=== PATIENT | female | born 1945 | race African-American/Black ===

== ENCOUNTER 2020-09-09 09:20 | Inpatient (IN) ==
[2020-09-09] MEDS ORDERED: ONDANSETRON 4 MG/2 ML VIAL IV STA (11:52)
[2020-09-09] MEDS ORDERED: SODIUM CHLORIDE 0.9% 1,000 ML IV STA (11:52)
[2020-09-09 12:16] LABS: Basophils % 0.1 % (0.0-0.8); Hematocrit 41.1 VOL% (35.7-47.0); Hemoglobin 13.3 GM/DL (12.0-16.0); Immature Granulocytes % 0.7 %; Immature Granulocytes Absolute 0.05 #; Lymphocytes # 0.4 10*3/uL (1.4-4.0); Lymphocytes % 5.1 % (21.3-54.2); Mean Corpuscular HGB Conc 32.4 GM/DL (32-36); Mean Corpuscular Volume 80.4 FL (87-102); Mean Platelet Volume 12.1 FL (9.6-12.0); Monocytes % 3.6 % (1.7-12.7); Neutrophils % 90.5 % (38.7-73.9); Platelet Count 157 T/CUMM (130-400); Red Blood Count 5.11 MC/CUMM (3.8-5.5); Red Cell Distribution Width 13.7 % (9.3-17.3); White Blood Count 6.9 T/CUMM (4-12)
[2020-09-09 12:24] LABS: Amorphous Crystals,Urine Moderate /HPF (Few); Bilirubin,Urine Negative (Negative); Blood, Urine Moderate mg/dL (Negative); Glucose,Urine (UA) 150 mg/dL (Negative); Ketones,Urine 5 mg/dL (Negative); Nitrite,Urine Negative (Negative); Protein,Urine >=500 MG/DL; Urine Appearance Slightly Hazy (Clear); Urine Color Yellow (Yellow); Urine Specific Gravity 1.019 (1.001-1.035); Urine Urobilinogen < 2.0 EU/DL (0.2-1.0)
[2020-09-09 12:38] LABS: Alanine Aminotransferase 29 U/L (13-56); Albumin 3.3 G/DL (3.4-5.0); Alkaline Phosphatase 80 U/L (45-117); Aspartate Amino Transferase 67 U/L (0-37); Bilirubin,Total < 0.39 MG/DL (0.20-1.00); Blood Urea Nitrogen 31 MG/DL (7-18); Carbon Dioxide 16 MMOL/L (21-32); Estimated Glom Filtration Rate 22 ML/MIN; Glucose 294 MG/DL (74-106); Osmolality,Calculated 287.1 MOS/KG (273-304); Potassium 3.7 MMOL/L (3.5-5.1); Sodium 135 MMOL/L (136-145); Total Protein 7.9 G/DL (6.4-8.2)
[2020-09-09 13:46] LABS: HIV Antigen/Antibody Result Nonreactive (Nonreactive); Hepatitis B Surface Ag Quant 0.43 Index; Hepatitis B Surface Ag Result Non-Reactive (NonReactive); Hepatitis C Virus Ab Quant > 11.00 Index; Hepatitis C Virus Ab Result Reactive (NonReactive)
[2020-09-09] MEDS ORDERED: ONDANSETRON 4 MG/2 ML VIAL IV PRN (13:54)
[2020-09-09] MEDS ORDERED: ACETAMINOPHEN 325 MG TABLET PO PRN (13:54)
[2020-09-09] MEDS ORDERED: GLUCAGON 1 MG VIAL IM PRN (13:54)
[2020-09-09] MEDS ORDERED: DEXTROSE 50% 25 GM/50 ML VIAL IV PRN (13:54)
[2020-09-09] MEDS ORDERED: hydrALAZINE 20 MG/1 ML VIAL ONE (14:00)
[2020-09-09] MEDS: PANTOPRAZOLE 40 MG VIAL IV SCH ×2 (14:20→20:40)
[2020-09-09] MEDS ORDERED: hydrALAZINE 20 MG/1 ML VIAL IV STA (14:49)
[2020-09-09] MEDS: SODIUM CHLORIDE 0.9% 1,000 ML IV SCH ×2 (15:04→23:47)
[2020-09-09] MEDS ORDERED: MELATONIN 3 MG TABLET PO PRN (15:28)
[2020-09-09] MEDS ORDERED: AZITHROMYCIN INJ 500 MG in SODIUM CHLORIDE 0.9% 250 ML IV ONE (15:28)
[2020-09-09] MEDS ORDERED: ENOXAPARIN 30 MG/0.3 ML SYRINGE SUBCUT SCH (15:30)
[2020-09-09] MEDS ORDERED: SODIUM CHLORIDE 0.9% 1,000 ML IV ONE (15:38)
[2020-09-09 16:02] LABS: Ferritin 367.9 ng/ml (8-252)
[2020-09-09] MEDS: DEXAMETHASONE 4 MG/1 ML VIAL IV SCH (16:14)
[2020-09-09] MEDS: ZINC GLUCONATE 50 MG TABLET PO SCH (16:18)
[2020-09-09] MEDS: CHOLECALCIFEROL 1,000 UNIT TABLET PO SCH (16:18)
[2020-09-09] MEDS: CETIRIZINE 10 MG TABLET PO SCH (16:19)
[2020-09-09] MEDS: cefTRIAXone 1,000 MG in SODIUM CHLORIDE 0.9% 100 ML IV SCH (16:19)
[2020-09-09 16:37] LABS: Calcium 7.8 MG/DL (8.5-10.1); Potassium 3.5 MMOL/L (3.5-5.1)
[2020-09-09] MEDS: METOPROLOL SUCCINATE XL 50 MG TABLET PO SCH (17:20)
[2020-09-09] MEDS: INSULIN LISPRO 100 UNIT/ML SUBCUT SCH ×2 (17:20→21:03)
[2020-09-09] MEDS ORDERED: PROMETHAZINE INJ 25 MG in SODIUM CHLORIDE 0.9% 50 ML IV PRN (17:42)
[2020-09-09] MEDS ORDERED: REMDESIVIR 200 MG in SODIUM CHLORIDE 0.9% 210 ML IV ONE (18:00)
[2020-09-09] MEDS: hydrALAZINE 20 MG/1 ML VIAL IV PRN (18:08)
[2020-09-09] MEDS: ATORVASTATIN 40 MG TABLET PO SCH (20:39)
[2020-09-09] MEDS: SERTRALINE 50 MG TABLET PO SCH (20:39)
[2020-09-09] MEDS: ASCORBIC ACID 500 MG TABLET PO SCH (20:39)
[2020-09-09] MEDS: FAMOTIDINE 20 MG TABLET PO SCH (20:39)
[2020-09-10] MEDS: hydrALAZINE 20 MG/1 ML VIAL IV PRN (00:44)
[2020-09-10] MEDS: INSULIN LISPRO 100 UNIT/ML SUBCUT SCH ×5 (03:10→21:41)
[2020-09-10 05:46] LABS: Hemoglobin 11.8 GM/DL (12.0-16.0); Immature Granulocytes % 0.6 %; Immature Granulocytes Absolute 0.05 #; Lymphocytes # 0.6 10*3/uL (1.4-4.0); Lymphocytes % 7.2 % (21.3-54.2); Mean Corpuscular HGB Conc 31.1 GM/DL (32-36); Mean Corpuscular Volume 82.4 FL (87-102); Mean Platelet Volume 11.7 FL (9.6-12.0); Monocytes % 4.9 % (1.7-12.7); Neutrophils % 87.3 % (38.7-73.9); Platelet Count 164 T/CUMM (130-400); Red Blood Count 4.61 MC/CUMM (3.8-5.5); Red Cell Distribution Width 14.1 % (9.3-17.3); White Blood Count 7.9 T/CUMM (4-12)
[2020-09-10 05:59] LABS: Alanine Aminotransferase 21 U/L (13-56); Albumin 2.5 G/DL (3.4-5.0); Alkaline Phosphatase 61 U/L (45-117); Aspartate Amino Transferase 52 U/L (0-37); Bilirubin,Total < 0.39 MG/DL (0.20-1.00); Blood Urea Nitrogen 32 MG/DL (7-18); Calcium 7.5 MG/DL (8.5-10.1); Carbon Dioxide 15 MMOL/L (21-32); Estimated Glom Filtration Rate 24 ML/MIN; Glucose 216 MG/DL (74-106); HDL Cholesterol 37 MG/DL (40-60); Osmolality,Calculated 292.4 MOS/KG (273-304); Potassium 3.9 MMOL/L (3.5-5.1); Risk Ratio 3.51; Sodium 140 MMOL/L (136-145); Total Protein 6.4 G/DL (6.4-8.2); Triglycerides 118 MG/DL (2-150); VLDL Cholesterol 23.6 MG/DL
[2020-09-10] MEDS: LEVOTHYROXINE 150 MCG TABLET PO SCH (06:05)
[2020-09-10] MEDS ORDERED: LACTATED RINGERS 1,000 ML IV SCH (08:00)
[2020-09-10] MEDS: PANTOPRAZOLE 40 MG VIAL IV SCH (08:47)
[2020-09-10] MEDS: DEXAMETHASONE 4 MG/1 ML VIAL IV SCH (08:47)
[2020-09-10] MEDS: CHOLECALCIFEROL 1,000 UNIT TABLET PO SCH (08:48)
[2020-09-10] MEDS: amLODIPine 10 MG TABLET PO SCH (08:49)
[2020-09-10] MEDS: ZINC GLUCONATE 50 MG TABLET PO SCH (08:49)
[2020-09-10] MEDS: ASCORBIC ACID 500 MG TABLET PO SCH ×2 (08:50→20:51)
[2020-09-10] MEDS: METOPROLOL SUCCINATE XL 50 MG TABLET PO SCH (08:50)
[2020-09-10] MEDS: AZITHROMYCIN 250 MG TABLET PO SCH (08:50)
[2020-09-10] MEDS: FAMOTIDINE 20 MG TABLET PO SCH (08:50)
[2020-09-10] MEDS: CETIRIZINE 10 MG TABLET PO SCH (08:50)
[2020-09-10] MEDS: BISACODYL 5 MG TABLET PO SCH (08:52)
[2020-09-10] MEDS: SODIUM BICARBONATE 650 MG TABLET PO SCH ×2 (08:53→20:51)
[2020-09-10] MEDS: REMDESIVIR 100 MG in SODIUM CHLORIDE 0.9% 100 ML IV SCH (10:41)
[2020-09-10] MEDS: SODIUM CHLORIDE 0.9% 1,000 ML IV SCH (15:04)
[2020-09-10] MEDS: cefTRIAXone 1,000 MG in SODIUM CHLORIDE 0.9% 100 ML IV SCH (15:50)
[2020-09-10] MEDS: ENOXAPARIN 60 MG/0.6 ML SYRINGE SUBCUT SCH (15:50)
[2020-09-10] MEDS: oxyCODONE/ACETAMINOPHEN 5-325 MG TABLET PO PRN (15:51)
[2020-09-10] MEDS: SUCRALFATE 1 GM TABLET PO SCH ×2 (17:47→23:59)
[2020-09-10] MEDS: SERTRALINE 50 MG TABLET PO SCH (20:51)
[2020-09-10] MEDS: ATORVASTATIN 40 MG TABLET PO SCH (20:51)
[2020-09-10] MEDS: LORazepam 2 MG/1 ML VIAL IV PRN (23:10)
[2020-09-11] MEDS: LORazepam 2 MG/1 ML VIAL IV PRN (03:15)
[2020-09-11 05:54] LABS: Hematocrit 37.4 VOL% (35.7-47.0); Hemoglobin 11.4 GM/DL (12.0-16.0); Lymphocytes # 0.8 10*3/uL (1.4-4.0); Lymphocytes % 7.8 % (21.3-54.2); Mean Corpuscular HGB Conc 30.5 GM/DL (32-36); Mean Corpuscular Volume 82.6 FL (87-102); Mean Platelet Volume 10.8 FL (9.6-12.0); Monocytes % 5.5 % (1.7-12.7); Neutrophils % 85.7 % (38.7-73.9); Platelet Count 206 T/CUMM (130-400); Red Blood Count 4.53 MC/CUMM (3.8-5.5); Red Cell Distribution Width 14.6 % (9.3-17.3); White Blood Count 9.7 T/CUMM (4-12)
[2020-09-11] MEDS: SUCRALFATE 1 GM TABLET PO SCH ×3 (06:00→17:50)
[2020-09-11 06:16] LABS: Albumin 2.6 G/DL (3.4-5.0); Bilirubin,Total 0.5 MG/DL (0.20-1.00); Calcium 7.7 MG/DL (8.5-10.1); Ferritin 518.1 ng/ml (8-252); Osmolality,Calculated 288.5 MOS/KG (273-304); Total Protein 6.5 G/DL (6.4-8.2)
[2020-09-11] MEDS: LEVOTHYROXINE 150 MCG TABLET PO SCH (06:29)
[2020-09-11] MEDS: INSULIN LISPRO 100 UNIT/ML SUBCUT SCH ×4 (07:00→20:28)
[2020-09-11] MEDS: CHOLECALCIFEROL 1,000 UNIT TABLET PO SCH (09:40)
[2020-09-11] MEDS: ZINC GLUCONATE 50 MG TABLET PO SCH (09:40)
[2020-09-11] MEDS: AZITHROMYCIN 250 MG TABLET PO SCH (09:40)
[2020-09-11] MEDS: REMDESIVIR 100 MG in SODIUM CHLORIDE 0.9% 100 ML IV SCH (09:40)
[2020-09-11] MEDS: CETIRIZINE 10 MG TABLET PO SCH (09:40)
[2020-09-11] MEDS: DEXAMETHASONE 4 MG/1 ML VIAL IV SCH (09:40)
[2020-09-11] MEDS: FAMOTIDINE 20 MG TABLET PO SCH (09:40)
[2020-09-11] MEDS: METOPROLOL SUCCINATE XL 50 MG TABLET PO SCH (09:40)
[2020-09-11] MEDS: amLODIPine 10 MG TABLET PO SCH (09:40)
[2020-09-11] MEDS: ASCORBIC ACID 500 MG TABLET PO SCH ×2 (09:40→20:26)
[2020-09-11] MEDS: BISACODYL 5 MG TABLET PO SCH (09:40)
[2020-09-11] MEDS: SODIUM BICARBONATE 650 MG TABLET PO SCH ×2 (09:40→20:26)
[2020-09-11 14:30] LABS: ABG HCO3 17.8 MMOL/L (20-26); ABG Oxygen Saturation 90.6 % (95-100); ABG PCO2 32.2 MM HG (35-48); ABG PO2 65.3 MM HG (80-95); ABG TCO2 15.3 MMOL/L (23-27)
[2020-09-11] MEDS: ENOXAPARIN 60 MG/0.6 ML SYRINGE SUBCUT SCH (17:44)
[2020-09-11] MEDS: cefTRIAXone 1,000 MG in SODIUM CHLORIDE 0.9% 100 ML IV SCH (17:44)
[2020-09-11] MEDS: SERTRALINE 50 MG TABLET PO SCH (20:26)
[2020-09-11] MEDS: oxyCODONE/ACETAMINOPHEN 5-325 MG TABLET PO PRN (20:26)
[2020-09-11] MEDS: ATORVASTATIN 40 MG TABLET PO SCH (20:26)
[2020-09-12] MEDS: SUCRALFATE 1 GM TABLET PO SCH ×4 (00:26→17:04)
[2020-09-12 04:32] LABS: ABG Base Excess -6.7 MMOL/L (-2.5-2.5); ABG HCO3 18.8 MMOL/L (20-26); ABG Oxygen Saturation 87.3 % (95-100); ABG PH 7.309 (7.35-7.45); ABG PO2 60.4 MM HG (80-95); ABG TCO2 17.2 MMOL/L (23-27); Allen Test Positive; Pt O2 Delivery Device Other
[2020-09-12] MEDS: LEVOTHYROXINE 150 MCG TABLET PO SCH (06:11)
[2020-09-12 06:28] LABS: Basophils % 0.1 % (0.0-0.8); Hematocrit 35.5 VOL% (35.7-47.0); Hemoglobin 11.2 GM/DL (12.0-16.0); Immature Granulocytes Absolute 0.07 #; Lymphocytes # 1.1 10*3/uL (1.4-4.0); Lymphocytes % 15.3 % (21.3-54.2); Mean Corpuscular HGB Conc 31.5 GM/DL (32-36); Mean Corpuscular Volume 82.8 FL (87-102); Mean Platelet Volume 11.3 FL (9.6-12.0); Monocytes % 7.6 % (1.7-12.7); Platelet Count 225 T/CUMM (130-400); Red Blood Count 4.29 MC/CUMM (3.8-5.5); Red Cell Distribution Width 14.8 % (9.3-17.3); White Blood Count 7.2 T/CUMM (4-12)
[2020-09-12 06:57] LABS: Calcium 7.3 MG/DL (8.5-10.1); Osmolality,Calculated 298.8 MOS/KG (273-304); Potassium 3.7 MMOL/L (3.5-5.1)
[2020-09-12 07:50] LABS: Hypochromasia 1+; Microcytosis 1+; Ovalocytes Slight
[2020-09-12 07:51] LABS: Platelet Estimate Normal
[2020-09-12] MEDS: INSULIN LISPRO 100 UNIT/ML SUBCUT SCH ×4 (08:17→21:22)
[2020-09-12] MEDS: CETIRIZINE 10 MG TABLET PO SCH (08:19)
[2020-09-12] MEDS: CHOLECALCIFEROL 1,000 UNIT TABLET PO SCH (08:19)
[2020-09-12] MEDS: METOPROLOL SUCCINATE XL 50 MG TABLET PO SCH (08:19)
[2020-09-12] MEDS: SODIUM BICARBONATE 650 MG TABLET PO SCH ×2 (08:19→21:23)
[2020-09-12] MEDS: ASCORBIC ACID 500 MG TABLET PO SCH ×2 (08:19→21:23)
[2020-09-12] MEDS: amLODIPine 10 MG TABLET PO SCH (08:19)
[2020-09-12] MEDS: ZINC GLUCONATE 50 MG TABLET PO SCH (08:19)
[2020-09-12] MEDS: AZITHROMYCIN 250 MG TABLET PO SCH (08:20)
[2020-09-12] MEDS: FAMOTIDINE 20 MG TABLET PO SCH ×2 (08:20→21:25)
[2020-09-12] MEDS: BISACODYL 5 MG TABLET PO SCH (08:20)
[2020-09-12] MEDS: DEXAMETHASONE 4 MG/1 ML VIAL IV SCH (08:21)
[2020-09-12] MEDS: ENOXAPARIN 60 MG/0.6 ML SYRINGE SUBCUT SCH ×2 (08:23→21:22)
[2020-09-12] MEDS: REMDESIVIR 100 MG in SODIUM CHLORIDE 0.9% 100 ML IV SCH (09:26)
[2020-09-12] MEDS ORDERED: LOPERAMIDE 2 MG CAPSULE PO PRN (11:31)
[2020-09-12] MEDS: cefTRIAXone 1,000 MG in SODIUM CHLORIDE 0.9% 100 ML IV SCH (15:55)
[2020-09-12] MEDS: SERTRALINE 50 MG TABLET PO SCH (21:23)
[2020-09-12] MEDS: ATORVASTATIN 40 MG TABLET PO SCH (21:23)
[2020-09-12] MEDS: oxyCODONE/ACETAMINOPHEN 5-325 MG TABLET PO PRN (21:34)
[2020-09-13] MEDS: SUCRALFATE 1 GM TABLET PO SCH ×4 (01:00→17:07)
[2020-09-13 05:24] LABS: ABG Base Excess -7.6 MMOL/L (-2.5-2.5); ABG HCO3 18.2 MMOL/L (20-26); ABG Oxygen Saturation 88.1 % (95-100); ABG PCO2 38.3 MM HG (35-48); ABG PH 7.292 (7.35-7.45); ABG PO2 62.3 MM HG (80-95); ABG TCO2 16.6 MMOL/L (23-27); Allen Test Positive; Pt O2 Delivery Device Other
[2020-09-13] MEDS: LEVOTHYROXINE 150 MCG TABLET PO SCH (06:08)
[2020-09-13 06:22] LABS: Calcium 7.9 MG/DL (8.5-10.1); Osmolality,Calculated 295.5 MOS/KG (273-304); Potassium 4.1 MMOL/L (3.5-5.1)
[2020-09-13] MEDS: DEXAMETHASONE 4 MG/1 ML VIAL IV SCH (08:23)
[2020-09-13] MEDS: ENOXAPARIN 60 MG/0.6 ML SYRINGE SUBCUT SCH ×2 (08:30→21:26)
[2020-09-13] MEDS: INSULIN LISPRO 100 UNIT/ML SUBCUT SCH ×4 (08:30→21:28)
[2020-09-13] MEDS: ASCORBIC ACID 500 MG TABLET PO SCH ×2 (08:32→21:29)
[2020-09-13] MEDS: SODIUM BICARBONATE 650 MG TABLET PO SCH ×2 (08:32→21:29)
[2020-09-13] MEDS: BISACODYL 5 MG TABLET PO SCH (08:32)
[2020-09-13] MEDS: ZINC GLUCONATE 50 MG TABLET PO SCH (08:32)
[2020-09-13] MEDS: METOPROLOL SUCCINATE XL 50 MG TABLET PO SCH (08:32)
[2020-09-13] MEDS: AZITHROMYCIN 250 MG TABLET PO SCH (08:32)
[2020-09-13] MEDS: CETIRIZINE 10 MG TABLET PO SCH (08:32)
[2020-09-13] MEDS: amLODIPine 10 MG TABLET PO SCH (08:33)
[2020-09-13] MEDS: CHOLECALCIFEROL 1,000 UNIT TABLET PO SCH (08:33)
[2020-09-13] MEDS: FAMOTIDINE 20 MG TABLET PO SCH ×2 (08:33→21:29)
[2020-09-13] MEDS: REMDESIVIR 100 MG in SODIUM CHLORIDE 0.9% 100 ML IV SCH (08:48)
[2020-09-13] MEDS: cefTRIAXone 1,000 MG in SODIUM CHLORIDE 0.9% 100 ML IV SCH (15:24)
[2020-09-13] MEDS ORDERED: INSULIN GLARGINE 100 UNIT/ML SUBCUT SCH (21:00)
[2020-09-13] MEDS: ATORVASTATIN 40 MG TABLET PO SCH (21:29)
[2020-09-13] MEDS: SERTRALINE 50 MG TABLET PO SCH (21:30)
[2020-09-14] MEDS: SUCRALFATE 1 GM TABLET PO SCH ×4 (00:24→17:47)
[2020-09-14] MEDS: oxyCODONE/ACETAMINOPHEN 5-325 MG TABLET PO PRN ×2 (00:25→15:53)
[2020-09-14 04:42] LABS: ABG Base Excess -7.7 MMOL/L (-2.5-2.5); ABG HCO3 17.5 MMOL/L (20-26); ABG Oxygen Saturation 88.8 % (95-100); ABG PCO2 34.9 MM HG (35-48); ABG PH 7.319 (7.35-7.45); ABG PO2 60.7 MM HG (80-95); ABG TCO2 18.6 MMOL/L (23-27); Allen Test Positive
[2020-09-14 06:14] LABS: Basophils % 0.1 % (0.0-0.8); Hematocrit 34.1 VOL% (35.7-47.0); Hemoglobin 10.6 GM/DL (12.0-16.0); Immature Granulocytes % 1.7 %; Immature Granulocytes Absolute 0.23 #; Lymphocytes # 0.8 10*3/uL (1.4-4.0); Lymphocytes % 5.8 % (21.3-54.2); Mean Corpuscular HGB Conc 31.1 GM/DL (32-36); Mean Corpuscular Volume 81.6 FL (87-102); Mean Platelet Volume 10.7 FL (9.6-12.0); Monocytes % 5.9 % (1.7-12.7); Neutrophils % 86.5 % (38.7-73.9); Platelet Count 302 T/CUMM (130-400); Red Blood Count 4.18 MC/CUMM (3.8-5.5); Red Cell Distribution Width 14.4 % (9.3-17.3); White Blood Count 13.4 T/CUMM (4-12)
[2020-09-14] MEDS: LEVOTHYROXINE 150 MCG TABLET PO SCH (06:16)
[2020-09-14 06:59] LABS: Alanine Aminotransferase 16 U/L (13-56); Albumin 2.2 G/DL (3.4-5.0); Alkaline Phosphatase 53 U/L (45-117); Aspartate Amino Transferase 16 U/L (0-37); Bilirubin,Total < 0.39 MG/DL (0.20-1.00); Blood Urea Nitrogen 55 MG/DL (7-18); Carbon Dioxide 18 MMOL/L (21-32); Estimated Glom Filtration Rate 22 ML/MIN; Ferritin 303.7 ng/ml (8-252); Glucose 161 MG/DL (74-106); Osmolality,Calculated 296.4 MOS/KG (273-304); Potassium 3.7 MMOL/L (3.5-5.1); Sodium 140 MMOL/L (136-145); Total Protein 5.9 G/DL (6.4-8.2)
[2020-09-14 07:19] LABS: Anisocytosis 1+; Platelet Estimate Normal
[2020-09-14 07:20] LABS: Burr Cells 1+
[2020-09-14] MEDS: DEXAMETHASONE 4 MG/1 ML VIAL IV SCH (08:27)
[2020-09-14] MEDS: amLODIPine 10 MG TABLET PO SCH (08:29)
[2020-09-14] MEDS: ZINC GLUCONATE 50 MG TABLET PO SCH (08:29)
[2020-09-14] MEDS: METOPROLOL SUCCINATE XL 50 MG TABLET PO SCH (08:29)
[2020-09-14] MEDS: CHOLECALCIFEROL 1,000 UNIT TABLET PO SCH (08:29)
[2020-09-14] MEDS: SODIUM BICARBONATE 650 MG TABLET PO SCH ×2 (08:30→20:21)
[2020-09-14] MEDS: FAMOTIDINE 20 MG TABLET PO SCH ×2 (08:30→20:21)
[2020-09-14] MEDS: CETIRIZINE 10 MG TABLET PO SCH (08:30)
[2020-09-14] MEDS: BISACODYL 5 MG TABLET PO SCH (08:30)
[2020-09-14] MEDS: ENOXAPARIN 60 MG/0.6 ML SYRINGE SUBCUT SCH ×2 (08:30→20:20)
[2020-09-14] MEDS: ASCORBIC ACID 500 MG TABLET PO SCH ×2 (08:30→20:21)
[2020-09-14] MEDS: INSULIN LISPRO 100 UNIT/ML SUBCUT SCH ×4 (08:54→20:21)
[2020-09-14] MEDS: LACTATED RINGERS 1,000 ML IV SCH (09:43)
[2020-09-14] MEDS: MAGNESIUM SULF RIDER 2 GM/50 ML PREMIX IV PRN (12:01)
[2020-09-14] MEDS ORDERED: SODIUM POLYSTYRENE SULFATE 15 GM/60 ML BOTTLE ONE (14:25)
[2020-09-14] MEDS: cefTRIAXone 1,000 MG in SODIUM CHLORIDE 0.9% 100 ML IV SCH (15:22)
[2020-09-14] MEDS: SERTRALINE 50 MG TABLET PO SCH (20:20)
[2020-09-14] MEDS: INSULIN GLARGINE 100 UNIT/ML SUBCUT SCH (20:21)
[2020-09-14] MEDS: ATORVASTATIN 40 MG TABLET PO SCH (20:21)
[2020-09-15] MEDS: LACTATED RINGERS 1,000 ML IV SCH ×4 (00:02→19:00)
[2020-09-15] MEDS: SUCRALFATE 1 GM TABLET PO SCH ×5 (00:02→17:03)
[2020-09-15 05:06] LABS: Allen Test Positive; Pt O2 Delivery Device Other
[2020-09-15 05:07] LABS: ABG Base Excess -6.1 MMOL/L (-2.5-2.5); ABG HCO3 19.2 MMOL/L (20-26); ABG Oxygen Saturation 88.4 % (95-100); ABG PH 7.332 (7.35-7.45); ABG PO2 59.4 MM HG (80-95); ABG TCO2 20.3 MMOL/L (23-27)
[2020-09-15 06:01] LABS: Basophils # 0.1 10*3/uL (0.0-0.2); Basophils % 0.3 % (0.0-0.8); Hematocrit 35.4 VOL% (35.7-47.0); Hemoglobin 11.1 GM/DL (12.0-16.0); Immature Granulocytes % 3.4 %; Immature Granulocytes Absolute 0.51 #; Lymphocytes # 0.8 10*3/uL (1.4-4.0); Lymphocytes % 4.9 % (21.3-54.2); Mean Corpuscular HGB Conc 31.4 GM/DL (32-36); Mean Corpuscular Volume 82.3 FL (87-102); Mean Platelet Volume 10.7 FL (9.6-12.0); Monocytes % 6.7 % (1.7-12.7); Neutrophils % 84.7 % (38.7-73.9); Platelet Count 333 T/CUMM (130-400); Red Cell Distribution Width 14.6 % (9.3-17.3); White Blood Count 15.2 T/CUMM (4-12)
[2020-09-15 06:20] LABS: Alanine Aminotransferase 15 U/L (13-56); Albumin 2.1 G/DL (3.4-5.0); Alkaline Phosphatase 67 U/L (45-117); Aspartate Amino Transferase 17 U/L (0-37); Bilirubin,Total < 0.39 MG/DL (0.20-1.00); Blood Urea Nitrogen 53 MG/DL (7-18); Calcium 8.4 MG/DL (8.5-10.1); Carbon Dioxide 19 MMOL/L (21-32); Estimated Glom Filtration Rate 25 ML/MIN; Glucose 115 MG/DL (74-106); Osmolality,Calculated 291.5 MOS/KG (273-304); Potassium 3.9 MMOL/L (3.5-5.1); Sodium 139 MMOL/L (136-145); Total Protein 6.1 G/DL (6.4-8.2)
[2020-09-15] MEDS: LEVOTHYROXINE 150 MCG TABLET PO SCH (06:29)
[2020-09-15] MEDS: INSULIN LISPRO 100 UNIT/ML SUBCUT SCH ×4 (07:08→20:50)
[2020-09-15] MEDS: ENOXAPARIN 60 MG/0.6 ML SYRINGE SUBCUT SCH ×2 (08:40→20:49)
[2020-09-15] MEDS: CHOLECALCIFEROL 1,000 UNIT TABLET PO SCH (08:41)
[2020-09-15] MEDS: amLODIPine 10 MG TABLET PO SCH (08:41)
[2020-09-15] MEDS: FAMOTIDINE 20 MG TABLET PO SCH ×2 (08:41→20:50)
[2020-09-15] MEDS: CETIRIZINE 10 MG TABLET PO SCH (08:41)
[2020-09-15] MEDS: ZINC GLUCONATE 50 MG TABLET PO SCH (08:41)
[2020-09-15] MEDS: oxyCODONE/ACETAMINOPHEN 5-325 MG TABLET PO PRN (08:42)
[2020-09-15] MEDS: METOPROLOL SUCCINATE XL 50 MG TABLET PO SCH (08:42)
[2020-09-15] MEDS: SODIUM BICARBONATE 650 MG TABLET PO SCH ×2 (08:43→20:50)
[2020-09-15] MEDS: ASCORBIC ACID 500 MG TABLET PO SCH ×2 (08:43→20:55)
[2020-09-15] MEDS: DEXAMETHASONE 4 MG/1 ML VIAL IV SCH (08:43)
[2020-09-15] MEDS: LORazepam 2 MG/1 ML VIAL IV PRN ×2 (08:44→13:13)
[2020-09-15] MEDS: BISACODYL 5 MG TABLET PO SCH (08:44)
[2020-09-15 09:00] LABS: Band Neutrophils 1 % (0-10); Burr Cells Few; Lymphocytes 6 % (20-55); Platelet Estimate Normal; Segmented Neutrophils 88 % (50-85); Total Cells Counted 100
[2020-09-15 09:01] LABS: Acanthocytes Few; Anisocytosis 2+
[2020-09-15] MEDS: MORPHINE 2 MG/1 ML SYRINGE IV PRN (13:13)
[2020-09-15] MEDS: cefTRIAXone 1,000 MG in SODIUM CHLORIDE 0.9% 100 ML IV SCH (16:59)
[2020-09-15 18:36] VITALS: BP 135/67
[2020-09-15] MEDS: SERTRALINE 50 MG TABLET PO SCH (20:50)
[2020-09-15] MEDS: ATORVASTATIN 40 MG TABLET PO SCH (20:50)
[2020-09-15] MEDS: INSULIN GLARGINE 100 UNIT/ML SUBCUT SCH (20:51)
[2020-09-16 04:42] LABS: ABG Base Excess -5.4 MMOL/L (-2.5-2.5); ABG HCO3 19.7 MMOL/L (20-26); ABG Oxygen Saturation 91.3 % (95-100); ABG PCO2 36.7 MM HG (35-48); ABG PH 7.347 (7.35-7.45); ABG PO2 65.8 MM HG (80-95); ABG TCO2 20.8 MMOL/L (23-27)
[2020-09-16] MEDS: SUCRALFATE 1 GM TABLET PO SCH ×4 (05:01→17:58)
[2020-09-16 05:41] LABS: Basophils # 0.1 10*3/uL (0.0-0.2); Basophils % 0.4 % (0.0-0.8); Hematocrit 38.1 VOL% (35.7-47.0); Hemoglobin 11.8 GM/DL (12.0-16.0); Immature Granulocytes % 6.2 %; Immature Granulocytes Absolute 0.93 #; Lymphocytes # 0.6 10*3/uL (1.4-4.0); Lymphocytes % 4.1 % (21.3-54.2); Mean Corpuscular Volume 81.2 FL (87-102); Mean Platelet Volume 10.1 FL (9.6-12.0); NRBC # 0.02 10*3/uL; Neutrophils % 84.3 % (38.7-73.9); Platelet Count 369 T/CUMM (130-400); Red Blood Count 4.69 MC/CUMM (3.8-5.5); Red Cell Distribution Width 14.3 % (9.3-17.3)
[2020-09-16 06:12] LABS: Band Neutrophils 1 % (0-10); Hypochromasia 1+; Lymphocytes 2 % (20-55); Segmented Neutrophils 93 % (50-85); Total Cells Counted 100
[2020-09-16 06:13] LABS: Acanthocytes Few; Microcytosis 1+; Ovalocytes Slight
[2020-09-16 06:19] LABS: Albumin 2.3 G/DL (3.4-5.0); Bilirubin,Total 0.4 MG/DL (0.20-1.00); Calcium 8.5 MG/DL (8.5-10.1); Ferritin 475.3 ng/ml (8-252); Osmolality,Calculated 296.1 MOS/KG (273-304); Potassium 3.8 MMOL/L (3.5-5.1); Total Protein 6.7 G/DL (6.4-8.2)
[2020-09-16] MEDS: LEVOTHYROXINE 150 MCG TABLET PO SCH (07:23)
[2020-09-16] MEDS: LORazepam 2 MG/1 ML VIAL IV PRN (08:01)
[2020-09-16] MEDS: MORPHINE 2 MG/1 ML SYRINGE IV PRN ×2 (08:01→15:32)
[2020-09-16] MEDS: DEXAMETHASONE 4 MG/1 ML VIAL IV SCH (08:23)
[2020-09-16] MEDS: SODIUM BICARBONATE 650 MG TABLET PO SCH ×3 (08:24→22:19)
[2020-09-16] MEDS: ASCORBIC ACID 500 MG TABLET PO SCH ×3 (08:24→22:20)
[2020-09-16] MEDS: CHOLECALCIFEROL 1,000 UNIT TABLET PO SCH ×2 (08:24→10:27)
[2020-09-16] MEDS: ZINC GLUCONATE 50 MG TABLET PO SCH ×2 (08:24→10:27)
[2020-09-16] MEDS: FAMOTIDINE 20 MG TABLET PO SCH ×2 (08:24→22:19)
[2020-09-16] MEDS: BISACODYL 5 MG TABLET PO SCH ×2 (08:25→10:26)
[2020-09-16] MEDS: amLODIPine 10 MG TABLET PO SCH (08:25)
[2020-09-16] MEDS: CETIRIZINE 10 MG TABLET PO SCH (08:26)
[2020-09-16] MEDS: METOPROLOL SUCCINATE XL 50 MG TABLET PO SCH (08:28)
[2020-09-16] MEDS: ENOXAPARIN 60 MG/0.6 ML SYRINGE SUBCUT SCH (08:42)
[2020-09-16] MEDS: hydrALAZINE 20 MG/1 ML VIAL IV PRN (09:21)
[2020-09-16] MEDS: INSULIN LISPRO 100 UNIT/ML SUBCUT SCH ×4 (10:28→21:50)
[2020-09-16] MEDS ORDERED: FUROSEMIDE 40 MG/4 ML VIAL IV ONE (14:48)
[2020-09-16] MEDS: MAGNESIUM SULF RIDER 2 GM/50 ML PREMIX IV PRN (15:32)
[2020-09-16] MEDS: cefTRIAXone 1,000 MG in SODIUM CHLORIDE 0.9% 100 ML IV SCH (17:47)
[2020-09-16] MEDS: LACTATED RINGERS 1,000 ML IV SCH (18:01)
[2020-09-16] MEDS: ATORVASTATIN 40 MG TABLET PO SCH (22:19)
[2020-09-16] MEDS: SERTRALINE 50 MG TABLET PO SCH (22:20)
[2020-09-16] MEDS: INSULIN GLARGINE 100 UNIT/ML SUBCUT SCH (22:25)
[2020-09-17 03:20] LABS: ABG Base Excess -2.5 MMOL/L (-2.5-2.5); ABG HCO3 21.8 MMOL/L (20-26); ABG Oxygen Saturation 96.3 % (95-100); ABG PCO2 36.5 MM HG (35-48); ABG PH 7.395 (7.35-7.45); ABG PO2 92.1 MM HG (80-95)
[2020-09-17 05:20] LABS: Basophils # 0.1 10*3/uL (0.0-0.2); Basophils % 0.3 % (0.0-0.8); Hematocrit 36.7 VOL% (35.7-47.0); Hemoglobin 11.8 GM/DL (12.0-16.0); Immature Granulocytes % 5.8 %; Immature Granulocytes Absolute 1.19 #; Lymphocytes # 0.6 10*3/uL (1.4-4.0); Mean Corpuscular HGB Conc 32.2 GM/DL (32-36); Mean Corpuscular Volume 80.1 FL (87-102); Monocytes % 4.1 % (1.7-12.7); Neutrophils % 86.8 % (38.7-73.9); Platelet Count 402 T/CUMM (130-400); Red Blood Count 4.58 MC/CUMM (3.8-5.5); Red Cell Distribution Width 14.1 % (9.3-17.3); White Blood Count 20.6 T/CUMM (4-12)
[2020-09-17 05:41] LABS: Hypochromasia Slight; Lymphocytes 2 % (20-55); Microcytosis Slight; Ovalocytes Slight; Platelet Estimate Adequate; Segmented Neutrophils 96 % (50-85); Total Cells Counted 100
[2020-09-17] MEDS: SUCRALFATE 1 GM TABLET PO SCH ×4 (05:43→17:08)
[2020-09-17 05:48] LABS: Albumin 2.2 G/DL (3.4-5.0); Bilirubin,Total 0.4 MG/DL (0.20-1.00); Calcium 9.2 MG/DL (8.5-10.1); Osmolality,Calculated 298.1 MOS/KG (273-304); Potassium 3.8 MMOL/L (3.5-5.1); Total Protein 7.1 G/DL (6.4-8.2)
[2020-09-17] MEDS: LEVOTHYROXINE 150 MCG TABLET PO SCH (07:16)
[2020-09-17] MEDS: LACTATED RINGERS 1,000 ML IV SCH ×2 (07:44→16:39)
[2020-09-17] MEDS ORDERED: DOCUSATE SODIUM 100 MG CAPSULE PO PRN (08:40)
[2020-09-17] MEDS: hydrALAZINE 20 MG/1 ML VIAL IV PRN (08:40)
[2020-09-17] MEDS: MORPHINE 2 MG/1 ML SYRINGE IV PRN ×3 (08:45→21:17)
[2020-09-17] MEDS: BISACODYL 5 MG TABLET PO SCH (08:52)
[2020-09-17] MEDS: INSULIN LISPRO 100 UNIT/ML SUBCUT SCH ×4 (08:52→20:59)
[2020-09-17] MEDS: DEXAMETHASONE 4 MG/1 ML VIAL IV SCH (08:52)
[2020-09-17] MEDS: SODIUM BICARBONATE 650 MG TABLET PO SCH ×2 (08:53→21:00)
[2020-09-17] MEDS: CHOLECALCIFEROL 1,000 UNIT TABLET PO SCH (08:53)
[2020-09-17] MEDS: ZINC GLUCONATE 50 MG TABLET PO SCH (08:53)
[2020-09-17] MEDS: TRIAMTERENE/HCTZ 37.5-25 MG TABLET PO SCH (08:53)
[2020-09-17] MEDS: ASCORBIC ACID 500 MG TABLET PO SCH ×2 (08:53→21:00)
[2020-09-17] MEDS: ENOXAPARIN 60 MG/0.6 ML SYRINGE SUBCUT SCH (08:53)
[2020-09-17] MEDS: CETIRIZINE 10 MG TABLET PO SCH (08:53)
[2020-09-17] MEDS: amLODIPine 10 MG TABLET PO SCH (08:53)
[2020-09-17] MEDS: FAMOTIDINE 20 MG TABLET PO SCH (08:53)
[2020-09-17] MEDS: METOPROLOL SUCCINATE XL 50 MG TABLET PO SCH (08:53)
[2020-09-17] MEDS: INSULIN GLARGINE 100 UNIT/ML SUBCUT SCH (20:59)
[2020-09-17] MEDS: SERTRALINE 50 MG TABLET PO SCH (21:00)
[2020-09-17] MEDS: ATORVASTATIN 40 MG TABLET PO SCH (21:00)
[2020-09-18] MEDS: SUCRALFATE 1 GM TABLET PO SCH ×4 (00:56→18:18)
[2020-09-18 04:38] LABS: Basophils # 0.1 10*3/uL (0.0-0.2); Basophils % 0.3 % (0.0-0.8); Hematocrit 35.9 VOL% (35.7-47.0); Hemoglobin 11.2 GM/DL (12.0-16.0); Immature Granulocytes % 4.2 %; Immature Granulocytes Absolute 0.94 #; Lymphocytes # 0.7 10*3/uL (1.4-4.0); Lymphocytes % 3.3 % (21.3-54.2); Mean Corpuscular HGB Conc 31.2 GM/DL (32-36); Mean Corpuscular Volume 81.4 FL (87-102); Mean Platelet Volume 10.2 FL (9.6-12.0); Monocytes % 3.7 % (1.7-12.7); Neutrophils % 88.5 % (38.7-73.9); Platelet Count 382 T/CUMM (130-400); Red Blood Count 4.41 MC/CUMM (3.8-5.5); Red Cell Distribution Width 14.2 % (9.3-17.3); White Blood Count 22.3 T/CUMM (4-12)
[2020-09-18 04:57] LABS: Calcium 8.7 MG/DL (8.5-10.1); Osmolality,Calculated 300.1 MOS/KG (273-304)
[2020-09-18 05:04] LABS: Band Neutrophils 1 % (0-10); Lymphocytes 2 % (20-55); Segmented Neutrophils 96 % (50-85); Total Cells Counted 100
[2020-09-18 05:05] LABS: Hypochromasia 1+; Microcytosis 1+; Ovalocytes Slight
[2020-09-18 05:06] LABS: Platelet Estimate Normal
[2020-09-18 05:09] LABS: ABG Base Excess -1.3 MMOL/L (-2.5-2.5); ABG HCO3 23.2 MMOL/L (20-26); ABG Oxygen Saturation 86.3 % (95-100); ABG PCO2 37.5 MM HG (35-48); ABG PO2 55.7 MM HG (80-95); Allen Test Positive; Pt O2 Delivery Device BIPAP
[2020-09-18] MEDS: LEVOTHYROXINE 150 MCG TABLET PO SCH (06:00)
[2020-09-18] MEDS: LACTATED RINGERS 1,000 ML IV SCH ×2 (06:32→20:01)
[2020-09-18] MEDS: INSULIN LISPRO 100 UNIT/ML SUBCUT SCH ×4 (10:54→21:00)
[2020-09-18] MEDS: FAMOTIDINE 20 MG TABLET PO SCH (10:55)
[2020-09-18] MEDS: ENOXAPARIN 60 MG/0.6 ML SYRINGE SUBCUT SCH (10:55)
[2020-09-18] MEDS: BISACODYL 5 MG TABLET PO SCH (10:55)
[2020-09-18] MEDS: DEXAMETHASONE 4 MG/1 ML VIAL IV SCH (10:55)
[2020-09-18] MEDS: TRIAMTERENE/HCTZ 37.5-25 MG TABLET PO SCH (10:55)
[2020-09-18] MEDS: amLODIPine 10 MG TABLET PO SCH (10:55)
[2020-09-18] MEDS: CHOLECALCIFEROL 1,000 UNIT TABLET PO SCH (10:56)
[2020-09-18] MEDS: SODIUM BICARBONATE 650 MG TABLET PO SCH ×2 (10:56→21:00)
[2020-09-18] MEDS: ZINC GLUCONATE 50 MG TABLET PO SCH (10:56)
[2020-09-18] MEDS: CETIRIZINE 10 MG TABLET PO SCH (10:56)
[2020-09-18] MEDS: METOPROLOL SUCCINATE XL 50 MG TABLET PO SCH (10:56)
[2020-09-18] MEDS: ASCORBIC ACID 500 MG TABLET PO SCH ×2 (10:56→21:00)
[2020-09-18] MEDS: MORPHINE 2 MG/1 ML SYRINGE IV PRN (13:02)
[2020-09-18] MEDS ORDERED: ALPRAZolam 0.5 MG TABLET PO ONE (19:40)
[2020-09-18] MEDS: INSULIN GLARGINE 100 UNIT/ML SUBCUT SCH (21:00)
[2020-09-18] MEDS: ATORVASTATIN 40 MG TABLET PO SCH (21:00)
[2020-09-18] MEDS: SERTRALINE 50 MG TABLET PO SCH (21:00)
[2020-09-19] MEDS: SUCRALFATE 1 GM TABLET PO SCH ×4 (01:00→18:19)
[2020-09-19 04:36] LABS: ABG Base Excess -1.6 MMOL/L (-2.5-2.5); ABG HCO3 22.9 MMOL/L (20-26); ABG Oxygen Saturation 86.2 % (95-100); ABG PH 7.354 (7.35-7.45); ABG PO2 57.5 MM HG (80-95); ABG TCO2 21.9 MMOL/L (23-27)
[2020-09-19 06:06] LABS: Basophils # 0.1 10*3/uL (0.0-0.2); Basophils % 0.3 % (0.0-0.8); Hemoglobin 10.8 GM/DL (12.0-16.0); Immature Granulocytes % 3.9 %; Immature Granulocytes Absolute 0.79 #; Lymphocytes # 0.8 10*3/uL (1.4-4.0); Mean Corpuscular HGB Conc 30.9 GM/DL (32-36); Mean Corpuscular Volume 82.9 FL (87-102); Mean Platelet Volume 10.6 FL (9.6-12.0); Monocytes % 3.8 % (1.7-12.7); Platelet Count 280 T/CUMM (130-400); Red Blood Count 4.22 MC/CUMM (3.8-5.5); Red Cell Distribution Width 14.3 % (9.3-17.3); White Blood Count 20.3 T/CUMM (4-12)
[2020-09-19 06:26] LABS: Calcium 8.5 MG/DL (8.5-10.1); Osmolality,Calculated 298.3 MOS/KG (273-304); Potassium 4.2 MMOL/L (3.5-5.1)
[2020-09-19] MEDS: LEVOTHYROXINE 150 MCG TABLET PO SCH (06:27)
[2020-09-19 06:28] LABS: Hypochromasia Slight; Lymphocytes 5 % (20-55); Microcytosis Slight; Ovalocytes Slight; Platelet Estimate Adequate; Segmented Neutrophils 92 % (50-85); Total Cells Counted 100
[2020-09-19] MEDS: BISACODYL 5 MG TABLET PO SCH (09:04)
[2020-09-19] MEDS: CETIRIZINE 10 MG TABLET PO SCH (09:04)
[2020-09-19] MEDS: amLODIPine 10 MG TABLET PO SCH (09:04)
[2020-09-19] MEDS: CHOLECALCIFEROL 1,000 UNIT TABLET PO SCH (09:05)
[2020-09-19] MEDS: SODIUM BICARBONATE 650 MG TABLET PO SCH ×2 (09:05→20:36)
[2020-09-19] MEDS: TRIAMTERENE/HCTZ 37.5-25 MG TABLET PO SCH (09:05)
[2020-09-19] MEDS: INSULIN LISPRO 100 UNIT/ML SUBCUT SCH ×4 (09:05→20:37)
[2020-09-19] MEDS: METOPROLOL SUCCINATE XL 50 MG TABLET PO SCH (09:05)
[2020-09-19] MEDS: FAMOTIDINE 20 MG TABLET PO SCH (09:05)
[2020-09-19] MEDS: ENOXAPARIN 60 MG/0.6 ML SYRINGE SUBCUT SCH (09:06)
[2020-09-19] MEDS: LACTATED RINGERS 1,000 ML IV SCH ×2 (09:38→22:50)
[2020-09-19] MEDS: ASCORBIC ACID 500 MG TABLET PO SCH ×2 (09:38→20:36)
[2020-09-19] MEDS: ZINC GLUCONATE 50 MG TABLET PO SCH (09:38)
[2020-09-19] MEDS: MORPHINE 2 MG/1 ML SYRINGE IV PRN (18:08)
[2020-09-19] MEDS: ATORVASTATIN 40 MG TABLET PO SCH (20:36)
[2020-09-19] MEDS: SERTRALINE 50 MG TABLET PO SCH (20:36)
[2020-09-19] MEDS: oxyCODONE/ACETAMINOPHEN 5-325 MG TABLET PO PRN (20:37)
[2020-09-19] MEDS: INSULIN GLARGINE 100 UNIT/ML SUBCUT SCH (20:38)
[2020-09-20] MEDS: SUCRALFATE 1 GM TABLET PO SCH ×4 (00:20→17:41)
[2020-09-20] MEDS: MORPHINE 2 MG/1 ML SYRINGE IV PRN ×5 (03:03→16:19)
[2020-09-20] MEDS ORDERED: ROCURONIUM 100 MG/10 ML VIAL IV ONE (04:05)
[2020-09-20] MEDS ORDERED: ETOMIDATE 20 MG/10 ML VIAL IV ONE (04:06)
[2020-09-20 04:59] LABS: ABG Base Excess -1.1 MMOL/L (-2.5-2.5); ABG HCO3 24.2 MMOL/L (20-26); ABG Oxygen Saturation 53.9 % (95-100); ABG PCO2 42.8 MM HG (35-48); ABG PH 7.371 (7.35-7.45); ABG TCO2 25.6 MMOL/L (23-27)
[2020-09-20 05:46] LABS: Calcium 8.6 MG/DL (8.5-10.1); Osmolality,Calculated 286.8 MOS/KG (273-304); Potassium 4.2 MMOL/L (3.5-5.1)
[2020-09-20 05:51] LABS: Basophils # 0.1 10*3/uL (0.0-0.2); Basophils % 0.3 % (0.0-0.8); Eosinophils # 0.2 10*3/uL (0.0-0.87); Eosinophils % 0.7 % (0.00-10.9); Hematocrit 39.7 VOL% (35.7-47.0); Hemoglobin 12.2 GM/DL (12.0-16.0); Immature Granulocytes % 4.2 %; Immature Granulocytes Absolute 1.02 #; Lymphocytes # 0.9 10*3/uL (1.4-4.0); Lymphocytes % 3.8 % (21.3-54.2); Mean Corpuscular HGB Conc 30.7 GM/DL (32-36); Mean Corpuscular Volume 83.9 FL (87-102); Mean Platelet Volume 10.4 FL (9.6-12.0); Monocytes % 3.2 % (1.7-12.7); NRBC # 0.02 10*3/uL; Neutrophils % 87.8 % (38.7-73.9); Red Blood Count 4.73 MC/CUMM (3.8-5.5); Red Cell Distribution Width 14.2 % (9.3-17.3)
[2020-09-20 05:59] LABS: Platelet Count 194 T/CUMM (130-400); White Blood Count 24.3 T/CUMM (4-12)
[2020-09-20] MEDS: LEVOTHYROXINE 150 MCG TABLET PO SCH (06:03)
[2020-09-20 06:12] LABS: Eosinophils 1 % (0-10); Hypochromasia 1+; Lymphocytes 4 % (20-55); Metamyelocytes 1 %; Microcytosis Slight; Segmented Neutrophils 86 % (50-85); Total Cells Counted 100
[2020-09-20 06:13] LABS: Ovalocytes Slight; Platelet Estimate Adequate; Polychromasia Slight
[2020-09-20] MEDS: ZINC GLUCONATE 50 MG TABLET PO SCH (09:28)
[2020-09-20] MEDS: BISACODYL 5 MG TABLET PO SCH (09:28)
[2020-09-20] MEDS: CHOLECALCIFEROL 1,000 UNIT TABLET PO SCH (09:28)
[2020-09-20] MEDS: SODIUM BICARBONATE 650 MG TABLET PO SCH (09:28)
[2020-09-20] MEDS: CETIRIZINE 10 MG TABLET PO SCH (09:28)
[2020-09-20] MEDS: ASCORBIC ACID 500 MG TABLET PO SCH (09:28)
[2020-09-20] MEDS: METOPROLOL SUCCINATE XL 50 MG TABLET PO SCH (09:28)
[2020-09-20] MEDS: TRIAMTERENE/HCTZ 37.5-25 MG TABLET PO SCH (09:28)
[2020-09-20] MEDS: hydrALAZINE 20 MG/1 ML VIAL IV PRN (09:28)
[2020-09-20] MEDS: amLODIPine 10 MG TABLET PO SCH (09:28)
[2020-09-20] MEDS: FAMOTIDINE 20 MG TABLET PO SCH (09:28)
[2020-09-20] MEDS: MAGNESIUM SULF RIDER 2 GM/50 ML PREMIX IV PRN (09:43)
[2020-09-20] MEDS: INSULIN LISPRO 100 UNIT/ML SUBCUT SCH ×3 (10:05→17:34)
[2020-09-20] MEDS: ENOXAPARIN 60 MG/0.6 ML SYRINGE SUBCUT SCH (10:08)
[2020-09-20] MEDS: LACTATED RINGERS 1,000 ML IV SCH ×2 (12:51→15:15)
== END 2020-09-20 19:49 | disposition expired | DRG 177 ==
LOC: EDBD → EDUNIT# → N.ED 09:20 → N.EDINP 13:54 → SUATTDRO 13:54 → N.CC 16:37
PROVIDERS: ADMIT Internal Medicine; ATTEND Phlebology